=== PATIENT | female | born 1985 | race American Indian/Alaskan Native ===

== ENCOUNTER 2021-04-13 17:04 | Emergency (ER) | payer SELFPAY ==
[2021-04-13] MEDS ORDERED: ZIPRASIDONE MESYLATE 20 MG VIAL IM ONE ×2 (17:35→17:36)
--- NOTE | 2021-04-13 17:39 | Emergency Department Report ---
ED Psych HPI - General Stated Complaint: MH EVAL Source: EMS - History of Present Illness Initial Comments: Patient is 36 years old female, unknown past medical or psychiatric history. Patient brought to the emergency room via EMS from a local gas station. Patient found to be with erratic behavior. Patient is walking around wandering. EMS stated that patient was very loud and agitated. Upon arrival to the ER patient is hyperverbal, flight of ideas and delusional. Patient is in acute psychosis. Patient received Geodon 20 mg IM. Complaint: altered mental status - Related Data Home Medications Medication Instructions Recorded Confirmed Last Taken Escitalopram [Lexapro] 30 mg PO DAILY 04/14/21 04/14/21 Unknown OLANzapine [ZyPREXA] 10 mg PO HS 04/14/21 04/14/21 Unknown hydrOXYzine PAMOATE [Vistaril] 50 mg PO BID 04/14/21 04/14/21 Unknown traZODone [Desyrel] 100 mg PO QHS 04/14/21 04/14/21 Unknown Allergies Allergy/AdvReac Type Severity Reaction Status Date / Time No Known Allergies Allergy Verified 04/13/21 17:34 ED Review of Systems ROS: Stated complaint: MH EVAL Other details as noted in HPI Comment: Unobtainable due to pts medical conditions ED Past Medical Hx - Medications Home Medications: Home Medications Medication Instructions Recorded Confirmed Last Taken Type Escitalopram [Lexapro] 30 mg PO DAILY 04/14/21 04/14/21 Unknown History OLANzapine [ZyPREXA] 10 mg PO HS 04/14/21 04/14/21 Unknown History hydrOXYzine PAMOATE [Vistaril] 50 mg PO BID 04/14/21 04/14/21 Unknown History traZODone [Desyrel] 100 mg PO QHS 04/14/21 04/14/21 Unknown History ED Physical Exam - General General appearance: alert, in no apparent distress, other (Agitated.) - Head Head exam: Present: atraumatic, normocephalic, normal inspection - Eye Eye exam: Present: normal appearance - ENT ENT exam: Present: normal exam, normal orophraynx, mucous membranes moist - Neck Neck exam: Present: normal inspection, full ROM. Absent: tenderness, meningismus - Respiratory Respiratory exam: Present: normal lung sounds bilaterally - Cardiovascular Cardiovascular Exam: Present: regular rate, normal rhythm, normal heart sounds - GI/Abdominal GI/Abdominal exam: Present: soft, normal bowel sounds. Absent: distended, tenderness, guarding, rebound, rigid, organomegaly, mass, bruit, pulsatile mass, hernia - Extremities Exam Extremities exam: Present: normal inspection, full ROM, normal capillary refill. Absent: tenderness, pedal edema, joint swelling, calf tenderness - Back Exam Back exam: Present: normal inspection, full ROM. Absent: CVA tenderness (R), CVA tenderness (L) - Neurological Exam Neurological exam: Present: alert, oriented X3, CN II-XII intact - Psychiatric Psychiatric exam: Present: normal mood - Skin Skin exam: Present: warm, intact, normal color ED Course Vital Signs 04/13/21 04/14/21 04/14/21 23:37 02:40 20:01 Temperature 98.4 F 98.4 F 97.3 F L Pulse Rate 63 106 H 101 H Respiratory 16 18 18 Rate Blood Pressure 113/84 102/82 128/93 [Right] O2 Sat by Pulse 100 100 100 Oximetry 04/14/21 04/15/21 04/15/21 20:51 02:15 09:00 Temperature 98.8 F Pulse Rate 96 H Respiratory 16 18 Rate Blood Pressure 142/71 [Right] O2 Sat by Pulse 98 98 100 Oximetry 04/15/21 04/16/21 04/16/21 20:00 08:14 14:53 Temperature 97.6 F 98.8 F Pulse Rate 100 H 77 Respiratory 16 20 Rate Blood Pressure 120/77 110/61 [Right] O2 Sat by Pulse 100 96 98 Oximetry 04/16/21 19:36 Temperature 98.5 F Pulse Rate 83 Respiratory 18 Rate Blood Pressure 106/64 [Right] O2 Sat by Pulse 99 Oximetry ED Medical Decision Making - Lab Data Result diagrams: 04/13/21 17:46 04/13/21 17:46 Critical care attestation.: If time is entered above; I have spent that time in minutes in the direct care of this critically ill patient, excluding procedure time. ED Disposition Clinical Impression: Acute psychosis Disposition: [address] [place] [address] Is pt being admited?: No Condition: Stable Referrals: PRIMARY CARE, [Primary Care Provider] - 3-5 Days
[2021-04-13 18:09] LABS: Alanine Aminotransferase 23 units/L (7-56); Albumin 4.6 g/dL (3.9-5); BUN/Creatinine Ratio 15; Basophils # (Auto) 0.1 K/mm3 (0.0-0.1); Basophils % (Auto) 0.7 % (0.0-1.8); Blood Urea Nitrogen 15 mg/dL (7-17); Calcium 10.7 mg/dL (8.4-10.2); Eosinophils % (Auto) 0.2 % (0.0-4.3); Hematocrit 39.8 % (30.3-42.9); Hemoglobin 13.1 gm/dl (10.1-14.3); Hemolysis Index 8; Lymphocytes # (Auto) 1.9 K/mm3 (1.2-5.4); Lymphocytes % (Auto) 21.8 % (13.4-35.0); Mean Corpuscular HGB Conc 33 % (30-34); Mean Corpuscular Volume 84 fl (79-97); Monocytes # (Auto) 0.9 K/mm3 (0.0-0.8); Monocytes % (Auto) 10.7 % (0.0-7.3); Platelet Count 266 K/mm3 (140-440); Red Blood Count 4.75 M/mm3 (3.65-5.03); Red Cell Distribution Width 19.6 % (13.2-15.2)
[2021-04-13] MEDS ORDERED: WATER FOR INJ Sterile (PF) 10 ML ONE (18:09)
[2021-04-13 18:18] LABS: Bilirubin,Direct < 0.2 mg/dL (0-0.2)
--- NOTE | 2021-04-14 10:29 | Event Note ---
Date: 04/14/21 Patient is 36 years old female admitted to the ER with acute psychosis. Patient still in seclusion because of erratic behavior and agitation. Patient received Geodon 20 mg IM. Vital signs stable. Labs reviewed and unremarkable however urine and UDS is still pending. Waiting for psychiatric team input.
--- NOTE | 2021-04-14 11:14 | Consultation ---
History of Present Illness - Reason for Consult Consult date: 04/14/21 Reason for consult: Mental health evaluation - History of Present Psychiatric Illness Per ED Note: Patient is 36 years old female, unknown past medical or psychiatric history. Patient brought to the emergency room via EMS from a local gas station. Patient found to be with erratic behavior. Patient is walking around wandering. EMS stated that patient was very loud and agitated. Upon arrival to the ER patient is hyperverbal, flight of ideas and delusional. Patient is in acute psychosis. Patient received Geodon 20 mg IM. Debra Singh is a 36 year old female with unknown psychiatric history who was brought to the ED for mental health evaluation. The patient is in the seclusion room, she seen responding to internal stimuli, disorganized thoughts and unable to answer questions at questions at this time. PAST PSYCHIATRIC HISTORY:Unable to assess PAST MEDICAL HISTORY: None reported or document Family Psychiatric History: Unable to assess SOCIAL HISTORY: Unable to assess REVIEW OF SYSTEMS: Unable to assess MENTAL STATUS EXAMINATION: Unable to assess Assessment and Plan (1) Continue 1013 Start Zyprexa 10mg po BID Current Visit: Yes Status: Acute The patient to comply with previously prescribed medications Risks, benefits and alternatives of medications discussed with the patient, questions answered and consent obtained from patient. PSYCHOTHERAPY: Supportive psychotherapy provided MEDICAL: Per primary team DELIRIUM PRECAUTIONS: Please re-orient patient frequently, keep lights on during the day, and minimize benzodiazepines and opiates as these medications could worsen patient's confusion. IMAGING SYSTEM ADMINISTRATOR: Defer to primary DISPOSITION: Recommend acute inpatient psychiatric hospitalization at this time. FOLLOW-UP: Will follow. Case staffed with Dr. Villavicencio Please contact with any questions and/or concerns. Thank you for the consult. Medications and Allergies Medications and Allergies Allergies Allergy/AdvReac Type Severity Reaction Status Date / Time No Known Allergies Allergy Verified 04/13/21 17:34 Home Medications Medication Instructions Recorded Confirmed Last Taken Type Escitalopram [Lexapro] 30 mg PO DAILY 04/14/21 04/14/21 Unknown History OLANzapine [ZyPREXA] 10 mg PO HS 04/14/21 04/14/21 Unknown History hydrOXYzine PAMOATE [Vistaril] 50 mg PO BID 04/14/21 04/14/21 Unknown History traZODone [Desyrel] 100 mg PO QHS 04/14/21 04/14/21 Unknown History Mental Status Exam - Vital signs Last Vital Signs Temp 98.4 F 04/14/21 02:40 Pulse 106 H 04/14/21 02:40 Resp 18 04/14/21 02:40 BP 102/82 04/14/21 02:40 Pulse Ox 100 04/14/21 02:40 Results Result Diagrams: 04/13/21 17:46 04/13/21 17:46 Abnormal lab results 04/13/21 04/13/21 04/13/21 Range/Units 17:46 17:46 17:46 RDW 19.6 H (13.2-15.2) % Teller % (Auto) 10.7 H (0.0-7.3) % Teller # (Auto) 0.9 H (0.0-0.8) K/mm3 Glucose 109 H (65-100) mg/dL Calcium 10.7 H (8.4-10.2) mg/dL Salicylates < 0.3 L (2.8-20.0) mg/dL All other labs normal.
[2021-04-15 04:04] LABS: Bilirubin,Urine NEG (Negative); Blood,Urine NEG (Negative); Calcium Oxalate Crystals,Urine 3+; Color,Urine Amber (Yellow); Mucus,Urine 3+ /HPF
[2021-04-15 04:10] LABS: Amphetamine Screen,Urine PRESUMPTIVE POSITIVE; Benzodiazepines Screen,Urine PRESUMPTIVE NEGATIVE; Cannabinoid Screen,Urine PRESUMPTIVE POSITIVE; Cocaine Screen,Urine PRESUMPTIVE POSITIVE; Methadone Screen,Urine PRESUMPTIVE NEGATIVE; Opiate Screen,Urine PRESUMPTIVE NEGATIVE
--- NOTE | 2021-04-15 09:19 | Progress Note ---
Subjective - Reason for Consult Consult date: 04/15/21 Reason for consult: mental health evaluation - Chief Complaint Chief complaint: Patient was seen eating breakfast. The patient continues to present with confusion; pt unable to answer questions. AST PSYCHIATRIC HISTORY:Unable to assess PAST MEDICAL HISTORY: None reported or document Family Psychiatric History: Unable to assess SOCIAL HISTORY: Unable to assess REVIEW OF SYSTEMS: Unable to assess MENTAL STATUS EXAMINATION: Unable to assess Assessment and Plan (1) Continue 1013 Start Zyprexa 10mg po BID Current Visit: Yes Status: Acute The patient to comply with previously prescribed medications Risks, benefits and alternatives of medications discussed with the patient, questions answered and consent obtained from patient. PSYCHOTHERAPY: Supportive psychotherapy provided MEDICAL: Per primary team DELIRIUM PRECAUTIONS: Please re-orient patient frequently, keep lights on during the day, and minimize benzodiazepines and opiates as these medications could worsen patient's confusion. DENTAL ASSISTING INSTRUCTOR: Defer to primary DISPOSITION: Recommend acute inpatient psychiatric hospitalization at this time. FOLLOW-UP: Will follow. Case staffed with Dr. Villavicencio Please contact with any questions and/or concerns. Thank you for the consult. Mental Status Exam - Vital signs Last Vital Signs Temp 98.8 F 04/15/21 02:15 Pulse 96 H 04/15/21 02:15 Resp 18 04/15/21 02:15 BP 142/71 04/15/21 02:15 Pulse Ox 100 04/15/21 09:00
--- NOTE | 2021-04-15 10:48 | Emergency Department Report ---
Blank Doc - Documentation Documentation: This patient presented on 04/13/2021 with some erratic behavior and was subseque ntly made a 1013 and ED hold secondary to acute psychosis. She was seen by my colleague and medically cleared at that time. I have reviewed the labs as well and they are mostly unremarkable except for the UDS positive for amphetamines, cocaine and marijuana. However, the patient has been here for about 48 hours and still has some erratic behavior, hyperverbal speech, rambling tangential thoughts. She has been seen by the psychiatric team and they continue to recommend inpatient stabilization. The patient has been started on Zyprexa. I have added a Covid test so the patient can be sent to an inpatient facility. Vital signs over the past 24 hours have been unremarkable including being afebrile. I spoke to the psychiatric emergency department nurse, Danitza, who says that there have been no events from overnight, nor signed out to her this morning. We will continue to monitor this patient during her ED course.
--- NOTE | 2021-04-16 09:49 | Event Note ---
Date: 04/16/21 The patient was evaluated in the emergency department for symptoms described in the history of present illness. He/she was evaluated in the context of the global COVID-19 pandemic, which necessitated consideration that the patient might be at risk for infection with the virus that causes COVID-19. Institutional protocols and algorithms that pertain to the evaluation of patients at risk for COVID-19 are in a state of rapid change based on information released by regulatory bodies including the CDC and federal and state organizations. These policies and algorithms were followed during the patient's care in the emergency department. Please note that these policies, procedures and recommendations changed on a rapid basis. Laboratory studies, vital signs, ER documentation and psychiatric documentation reviewed and appreciated. Patient resting comfortably at this time. Covid swab pending. Acetaminophen level pending. Care team reports an uneventful morning, patient went to the bathroom, ate breakfast, and had no acute issues. Awaiting psychiatric disposition and placement, psychiatric recommendations are reviewed and appreciated. Lab Results 04/13/21 04/13/21 04/13/21 Range/Units 17:46 17:46 17:46 WBC 8.7 (4.5-11.0) K/mm3 RBC 4.75 (3.65-5.03) M/mm3 Hgb 13.1 (10.1-14.3) gm/dl Hct 39.8 (30.3-42.9) % MCV 84 (79-97) fl MCH 28 (28-32) pg MCHC 33 (30-34) % RDW 19.6 H (13.2-15.2) % Plt Count 266 (140-440) K/mm3 Lymph % (Auto) 21.8 (13.4-35.0) % Yates % (Auto) 10.7 H (0.0-7.3) % Eos % (Auto) 0.2 (0.0-4.3) % Baso % (Auto) 0.7 (0.0-1.8) % Lymph # (Auto) 1.9 (1.2-5.4) K/mm3 Yates # (Auto) 0.9 H (0.0-0.8) K/mm3 Eos # (Auto) 0.0 (0.0-0.4) K/mm3 Baso # (Auto) 0.1 (0.0-0.1) K/mm3 Seg Neutrophils % 66.6 (40.0-70.0) % Seg Neutrophils # 5.8 (1.8-7.7) K/mm3 Sodium 140 (137-145) mmol/L Potassium 4.1 (3.6-5.0) mmol/L Chloride 103.9 (98-107) mmol/L Carbon Dioxide 23 (22-30) mmol/L Anion Gap 17 mmol/L BUN 15 (7-17) mg/dL Creatinine 1.0 (0.6-1.2) mg/dL Estimated GFR > 60 ml/min BUN/Creatinine Ratio 15 % Glucose 109 H (65-100) mg/dL Calcium 10.7 H (8.4-10.2) mg/dL Total Bilirubin 0.40 (0.1-1.2) mg/dL Direct Bilirubin < 0.2 (0-0.2) mg/dL Indirect Bilirubin 0.2 mg/dL AST 24 (5-40) units/L ALT 23 (7-56) units/L Alkaline Phosphatase 71 (35-129) units/L Total Protein 8.0 (6.3-8.2) g/dL Albumin 4.6 (3.9-5) g/dL Albumin/Globulin Ratio 1.4 % HCG, Qual (Negative) Urine Color (Yellow) Urine Turbidity (Clear) Urine pH (5.0-7.0) Ur Specific [place] (1.003-1.030) Urine Protein (Negative) mg/dL Urine Glucose (UA) (Negative) mg/dL Urine Ketones (Negative) mg/dL Urine Blood (Negative) Urine Nitrite (Negative) Urine Bilirubin (Negative) Urine Urobilinogen (<2.0) mg/dL Ur Leukocyte Esterase (Negative) Urine WBC (Auto) (0.0-6.0) /HPF Urine RBC (Auto) (0.0-6.0) /HPF U Epithel Cells (Auto) (0-13.0) /HPF Calcium Oxalate Crystal Urine Mucus /HPF Salicylates < 0.3 L (2.8-20.0) mg/dL Urine Opiates Screen Urine Methadone Screen Ur Barbiturates Screen Ur Phencyclidine Scrn Ur Amphetamines Screen U Benzodiazepines Scrn Urine Cocaine Screen U Marijuana (THC) Screen Drugs of Abuse Note Plasma/Serum Alcohol (0-0.07) % 04/13/21 04/13/21 04/15/21 Range/Units 17:46 17:46 02:14 WBC (4.5-11.0) K/mm3 RBC (3.65-5.03) M/mm3 Hgb (10.1-14.3) gm/dl Hct (30.3-42.9) % MCV (79-97) fl MCH (28-32) pg MCHC (30-34) % RDW (13.2-15.2) % Plt Count (140-440) K/mm3 Lymph % (Auto) (13.4-35.0) % Yates % (Auto) (0.0-7.3) % Eos % (Auto) (0.0-4.3) % Baso % (Auto) (0.0-1.8) % Lymph # (Auto) (1.2-5.4) K/mm3 Yates # (Auto) (0.0-0.8) K/mm3 Eos # (Auto) (0.0-0.4) K/mm3 Baso # (Auto) (0.0-0.1) K/mm3 Seg Neutrophils % (40.0-70.0) % Seg Neutrophils # (1.8-7.7) K/mm3 Sodium (137-145) mmol/L Potassium (3.6-5.0) mmol/L Chloride (98-107) mmol/L Carbon Dioxide (22-30) mmol/L Anion Gap mmol/L BUN (7-17) mg/dL Creatinine (0.6-1.2) mg/dL Estimated GFR ml/min BUN/Creatinine Ratio % Glucose (65-100) mg/dL Calcium (8.4-10.2) mg/dL Total Bilirubin (0.1-1.2) mg/dL Direct Bilirubin (0-0.2) mg/dL Indirect Bilirubin mg/dL AST (5-40) units/L ALT (7-56) units/L Alkaline Phosphatase (35-129) units/L Total Protein (6.3-8.2) g/dL Albumin (3.9-5) g/dL Albumin/Globulin Ratio % HCG, Qual Negative (Negative) Urine Color Tashia (Yellow) Urine Turbidity Hazy (Clear) Urine pH 5.0 (5.0-7.0) Ur Specific [place] 1.033 H (1.003-1.030) Urine Protein 30 mg/dl (Negative) mg/dL Urine Glucose (UA) Neg (Negative) mg/dL Urine Ketones Tr (Negative) mg/dL Urine Blood Neg (Negative) Urine Nitrite Neg (Negative) Urine Bilirubin Neg (Negative) Urine Urobilinogen 2.0 (<2.0) mg/dL Ur Leukocyte Esterase Tr (Negative) Urine WBC (Auto) 6.0 (0.0-6.0) /HPF Urine RBC (Auto) 8.0 (0.0-6.0) /HPF U Epithel Cells (Auto) 5.0 (0-13.0) /HPF Calcium Oxalate Crystal 3+ Urine Mucus 3+ /HPF Salicylates (2.8-20.0) mg/dL Urine Opiates Screen Urine Methadone Screen Ur Barbiturates Screen Ur Phencyclidine Scrn Ur Amphetamines Screen U Benzodiazepines Scrn Urine Cocaine Screen U Marijuana (THC) Screen Drugs of Abuse Note Plasma/Serum Alcohol < 0.01 (0-0.07) % 04/15/21 Range/Units 02:14 WBC (4.5-11.0) K/mm3 RBC (3.65-5.03) M/mm3 Hgb (10.1-14.3) gm/dl Hct (30.3-42.9) % MCV (79-97) fl MCH (28-32) pg MCHC (30-34) % RDW (13.2-15.2) % Plt Count (140-440) K/mm3 Lymph % (Auto) (13.4-35.0) % Yates % (Auto) (0.0-7.3) % Eos % (Auto) (0.0-4.3) % Baso % (Auto) (0.0-1.8) % Lymph # (Auto) (1.2-5.4) K/mm3 Yates # (Auto) (0.0-0.8) K/mm3 Eos # (Auto) (0.0-0.4) K/mm3 Baso # (Auto) (0.0-0.1) K/mm3 Seg Neutrophils % (40.0-70.0) % Seg Neutrophils # (1.8-7.7) K/mm3 Sodium (137-145) mmol/L Potassium (3.6-5.0) mmol/L Chloride (98-107) mmol/L Carbon Dioxide (22-30) mmol/L Anion Gap mmol/L BUN (7-17) mg/dL Creatinine (0.6-1.2) mg/dL Estimated GFR ml/min BUN/Creatinine Ratio % Glucose (65-100) mg/dL Calcium (8.4-10.2) mg/dL Total Bilirubin (0.1-1.2) mg/dL Direct Bilirubin (0-0.2) mg/dL Indirect Bilirubin mg/dL AST (5-40) units/L ALT (7-56) units/L Alkaline Phosphatase (35-129) units/L Total Protein (6.3-8.2) g/dL Albumin (3.9-5) g/dL Albumin/Globulin Ratio % HCG, Qual (Negative) Urine Color (Yellow) Urine Turbidity (Clear) Urine pH (5.0-7.0) Ur Specific [place] (1.003-1.030) Urine Protein (Negative) mg/dL Urine Glucose (UA) (Negative) mg/dL Urine Ketones (Negative) mg/dL Urine Blood (Negative) Urine Nitrite (Negative) Urine Bilirubin (Negative) Urine Urobilinogen (<2.0) mg/dL Ur Leukocyte Esterase (Negative) Urine WBC (Auto) (0.0-6.0) /HPF Urine RBC (Auto) (0.0-6.0) /HPF U Epithel Cells (Auto) (0-13.0) /HPF Calcium Oxalate Crystal Urine Mucus /HPF Salicylates (2.8-20.0) mg/dL Urine Opiates Screen Presumptive negative Urine Methadone Screen Presumptive negative Ur Barbiturates Screen Presumptive negative Ur Phencyclidine Scrn Presumptive negative Ur Amphetamines Screen Presumptive positive U Benzodiazepines Scrn Presumptive negative Urine Cocaine Screen Presumptive positive U Marijuana (THC) Screen Presumptive positive Drugs of Abuse Note Disclamer Plasma/Serum Alcohol (0-0.07) % Lab Results 04/13/21 04/13/21 04/13/21 Range/Units 17:46 17:46 17:46 WBC 8.7 (4.5-11.0) K/mm3 RBC 4.75 (3.65-5.03) M/mm3 Hgb 13.1 (10.1-14.3) gm/dl Hct 39.8 (30.3-42.9) % MCV 84 (79-97) fl MCH 28 (28-32) pg MCHC 33 (30-34) % RDW 19.6 H (13.2-15.2) % Plt Count 266 (140-440) K/mm3 Lymph % (Auto) 21.8 (13.4-35.0) % Yates % (Auto) 10.7 H (0.0-7.3) % Eos % (Auto) 0.2 (0.0-4.3) % Baso % (Auto) 0.7 (0.0-1.8) % Lymph # (Auto) 1.9 (1.2-5.4) K/mm3 Yates # (Auto) 0.9 H (0.0-0.8) K/mm3 Eos # (Auto) 0.0 (0.0-0.4) K/mm3 Baso # (Auto) 0.1 (0.0-0.1) K/mm3 Seg Neutrophils % 66.6 (40.0-70.0) % Seg Neutrophils # 5.8 (1.8-7.7) K/mm3 Sodium 140 (137-145) mmol/L Potassium 4.1 (3.6-5.0) mmol/L Chloride 103.9 (98-107) mmol/L Carbon Dioxide 23 (22-30) mmol/L Anion Gap 17 mmol/L BUN 15 (7-17) mg/dL Creatinine 1.0 (0.6-1.2) mg/dL Estimated GFR > 60 ml/min BUN/Creatinine Ratio 15 % Glucose 109 H (65-100) mg/dL Calcium 10.7 H (8.4-10.2) mg/dL Total Bilirubin 0.40 (0.1-1.2) mg/dL Direct Bilirubin < 0.2 (0-0.2) mg/dL Indirect Bilirubin 0.2 mg/dL AST 24 (5-40) units/L ALT 23 (7-56) units/L Alkaline Phosphatase 71 (35-129) units/L Total Protein 8.0 (6.3-8.2) g/dL Albumin 4.6 (3.9-5) g/dL Albumin/Globulin Ratio 1.4 % HCG, Qual (Negative) Urine Color (Yellow) Urine Turbidity (Clear) Urine pH (5.0-7.0) Ur Specific [place] (1.003-1.030) Urine Protein (Negative) mg/dL Urine Glucose (UA) (Negative) mg/dL Urine Ketones (Negative) mg/dL Urine Blood (Negative) Urine Nitrite (Negative) Urine Bilirubin (Negative) Urine Urobilinogen (<2.0) mg/dL Ur Leukocyte Esterase (Negative) Urine WBC (Auto) (0.0-6.0) /HPF Urine RBC (Auto) (0.0-6.0) /HPF U Epithel Cells (Auto) (0-13.0) /HPF Calcium Oxalate Crystal Urine Mucus /HPF Salicylates < 0.3 L (2.8-20.0) mg/dL Urine Opiates Screen Urine Methadone Screen Ur Barbiturates Screen Ur Phencyclidine Scrn Ur Amphetamines Screen U Benzodiazepines Scrn Urine Cocaine Screen U Marijuana (THC) Screen Drugs of Abuse Note Plasma/Serum Alcohol (0-0.07) % 04/13/21 04/13/21 04/15/21 Range/Units 17:46 17:46 02:14 WBC (4.5-11.0) K/mm3 RBC (3.65-5.03) M/mm3 Hgb (10.1-14.3) gm/dl Hct (30.3-42.9) % MCV (79-97) fl MCH (28-32) pg MCHC (30-34) % RDW (13.2-15.2) % Plt Count (140-440) K/mm3 Lymph % (Auto) (13.4-35.0) % Yates % (Auto) (0.0-7.3) % Eos % (Auto) (0.0-4.3) % Baso % (Auto) (0.0-1.8) % Lymph # (Auto) (1.2-5.4) K/mm3 Yates # (Auto) (0.0-0.8) K/mm3 Eos # (Auto) (0.0-0.4) K/mm3 Baso # (Auto) (0.0-0.1) K/mm3 Seg Neutrophils % (40.0-70.0) % Seg Neutrophils # (1.8-7.7) K/mm3 Sodium (137-145) mmol/L Potassium (3.6-5.0) mmol/L Chloride (98-107) mmol/L Carbon Dioxide (22-30) mmol/L Anion Gap mmol/L BUN (7-17) mg/dL Creatinine (0.6-1.2) mg/dL Estimated GFR ml/min BUN/Creatinine Ratio % Glucose (65-100) mg/dL Calcium (8.4-10.2) mg/dL Total Bilirubin (0.1-1.2) mg/dL Direct Bilirubin (0-0.2) mg/dL Indirect Bilirubin mg/dL AST (5-40) units/L ALT (7-56) units/L Alkaline Phosphatase (35-129) units/L Total Protein (6.3-8.2) g/dL Albumin (3.9-5) g/dL Albumin/Globulin Ratio % HCG, Qual Negative (Negative) Urine Color Tashia (Yellow) Urine Turbidity Hazy (Clear) Urine pH 5.0 (5.0-7.0) Ur Specific [place] 1.033 H (1.003-1.030) Urine Protein 30 mg/dl (Negative) mg/dL Urine Glucose (UA) Neg (Negative) mg/dL Urine Ketones Tr (Negative) mg/dL Urine Blood Neg (Negative) Urine Nitrite Neg (Negative) Urine Bilirubin Neg (Negative) Urine Urobilinogen 2.0 (<2.0) mg/dL Ur Leukocyte Esterase Tr (Negative) Urine WBC (Auto) 6.0 (0.0-6.0) /HPF Urine RBC (Auto) 8.0 (0.0-6.0) /HPF U Epithel Cells (Auto) 5.0 (0-13.0) /HPF Calcium Oxalate Crystal 3+ Urine Mucus 3+ /HPF Salicylates (2.8-20.0) mg/dL Urine Opiates Screen Urine Methadone Screen Ur Barbiturates Screen Ur Phencyclidine Scrn Ur Amphetamines Screen U Benzodiazepines Scrn Urine Cocaine Screen U Marijuana (THC) Screen Drugs of Abuse Note Plasma/Serum Alcohol < 0.01 (0-0.07) % 04/15/21 Range/Units 02:14 WBC (4.5-11.0) K/mm3 RBC (3.65-5.03) M/mm3 Hgb (10.1-14.3) gm/dl Hct (30.3-42.9) % MCV (79-97) fl MCH (28-32) pg MCHC (30-34) % RDW (13.2-15.2) % Plt Count (140-440) K/mm3 Lymph % (Auto) (13.4-35.0) % Yates % (Auto) (0.0-7.3) % Eos % (Auto) (0.0-4.3) % Baso % (Auto) (0.0-1.8) % Lymph # (Auto) (1.2-5.4) K/mm3 Yates # (Auto) (0.0-0.8) K/mm3 Eos # (Auto) (0.0-0.4) K/mm3 Baso # (Auto) (0.0-0.1) K/mm3 Seg Neutrophils % (40.0-70.0) % Seg Neutrophils # (1.8-7.7) K/mm3 Sodium (137-145) mmol/L Potassium (3.6-5.0) mmol/L Chloride (98-107) mmol/L Carbon Dioxide (22-30) mmol/L Anion Gap mmol/L BUN (7-17) mg/dL Creatinine (0.6-1.2) mg/dL Estimated GFR ml/min BUN/Creatinine Ratio % Glucose (65-100) mg/dL Calcium (8.4-10.2) mg/dL Total Bilirubin (0.1-1.2) mg/dL Direct Bilirubin (0-0.2) mg/dL Indirect Bilirubin mg/dL AST (5-40) units/L ALT (7-56) units/L Alkaline Phosphatase (35-129) units/L Total Protein (6.3-8.2) g/dL Albumin (3.9-5) g/dL Albumin/Globulin Ratio % HCG, Qual (Negative) Urine Color (Yellow) Urine Turbidity (Clear) Urine pH (5.0-7.0) Ur Specific [place] (1.003-1.030) Urine Protein (Negative) mg/dL Urine Glucose (UA) (Negative) mg/dL Urine Ketones (Negative) mg/dL Urine Blood (Negative) Urine Nitrite (Negative) Urine Bilirubin (Negative) Urine Urobilinogen (<2.0) mg/dL Ur Leukocyte Esterase (Negative) Urine WBC (Auto) (0.0-6.0) /HPF Urine RBC (Auto) (0.0-6.0) /HPF U Epithel Cells (Auto) (0-13.0) /HPF Calcium Oxalate Crystal Urine Mucus /HPF Salicylates (2.8-20.0) mg/dL Urine Opiates Screen Presumptive negative Urine Methadone Screen Presumptive negative Ur Barbiturates Screen Presumptive negative Ur Phencyclidine Scrn Presumptive negative Ur Amphetamines Screen Presumptive positive U Benzodiazepines Scrn Presumptive negative Urine Cocaine Screen Presumptive positive U Marijuana (THC) Screen Presumptive positive Drugs of Abuse Note Disclamer Plasma/Serum Alcohol (0-0.07) %
--- NOTE | 2021-04-16 10:17 | Progress Note ---
Subjective - Reason for Consult Consult date: 04/16/21 Reason for consult: mental health evaluation - Chief Complaint Chief complaint: Patient was seen resting quietly. During my conversation with her, she continues to present with disorganized thoughts ,and she became loud stating " I'm offended, someone picked me off the streets and brought me here." AST PSYCHIATRIC HISTORY:Unable to assess PAST MEDICAL HISTORY: None reported or document Family Psychiatric History: Unable to assess SOCIAL HISTORY: Unable to assess REVIEW OF SYSTEMS: Unable to assess MENTAL STATUS EXAMINATION: Unable to assess Assessment and Plan (1) Continue 1013 Start Zyprexa 10mg po BID Current Visit: Yes Status: Acute The patient to comply with previously prescribed medications Risks, benefits and alternatives of medications discussed with the patient, questions answered and consent obtained from patient. PSYCHOTHERAPY: Supportive psychotherapy provided MEDICAL: Per primary team DELIRIUM PRECAUTIONS: Please re-orient patient frequently, keep lights on during the day, and minimize benzodiazepines and opiates as these medications could worsen patient's confusion. [employer] [facility]: Defer to primary DISPOSITION: Recommend acute inpatient psychiatric hospitalization at this time. FOLLOW-UP: Will follow. Case staffed with Dr. Villavicencio Please contact with any questions and/or concerns. Thank you for the consult. Mental Status Exam - Vital signs Last Vital Signs Temp 98.8 F 04/16/21 08:14 Pulse 77 04/16/21 08:14 Resp 20 04/16/21 08:14 BP 110/61 04/16/21 08:14 Pulse Ox 96 04/16/21 08:14
[2021-04-16 19:38] VITALS: BP 106/64
[2021-04-17] MEDS ORDERED: ZIPRASIDONE MESYLATE 20 MG VIAL IM ONE ×2 (01:13→01:14)
--- NOTE | 2021-04-17 01:20 | Event Note ---
Date: 04/17/21 36-year-old female with acute psychosis. Patient is here on a 1013 however, 1013 is not currently on chart. I signed a 1013 after reviewing psychiatric recommendation. Transportation is here to take patient to psychiatric facility however, she is psychotic, uncooperative, refusing transfer at this time. She has oral Geodon ordered twice daily but apparently has not received any doses of antipsychotics since her ED stay as per reviewed MAR. 20 mg IM Geodon ordered
== END 2021-04-17 01:15 ==
LOC: ED 17:04 → EEVIPCON 17:04 → ED 04-17 01:15
DX: F23 Brief psychotic disorder (principal); Z20.822 Contact with and (suspected) exposure to COVID-19
CPT/HCPCS: 36415; 80048; 80076; 80307; 81001; 84703; 85025; 96372; 99284; J3486; U0003; 80320; G0480